=== PATIENT | female | born 2005 | race Two or more races ===

== ENCOUNTER 2025-01-29 10:53 | Emergency (ER) | payer MEDICAID, SELFPAY ==
--- NOTE | 2025-01-29 11:20 | XR_ITS ---
Examination: CT cervical spine without contrast 2-D sagittal reconstructions 2-D coronal reconstructions 3-D reconstructions. Exam date and time:January 29, 2025, 1114 hrs. Indications: Patient fell this morning with injury to the neck, neck pain CTDI:vol (mGy) 17.7 DLP: (mGycm) 355 Technique: Multiple 2 mm axial sections of the cervical spine have been obtained. The coronal and sagittal reconstructions have been obtained. 3-D reconstructions have been obtained. Low dose protocols were performed. One or more of the following dose reduction techniques were used; automated exposure control, adjustment of the mA and/or KV according to patient size, use of iterative reconstruction technique. Findings: Axial sections demonstrate intact base of the skull. C1 exhibit satisfactory relationship to the odontoid. No acute cervical vertebral body fracture seen. Alignment posterior spinous processes satisfactory. Impression: No acute cervical fracture.
--- NOTE | 2025-01-29 11:20 | XR_ITS ---
Examination: Left elbow 3 views Technique: Elbow AP, oblique, lateral 3 views Exam date and time: January 29, 2025 11:12 AM Indications: Injury to the elbow today, elbow pain. Findings: No fracture or dislocation. No foreign body Impression: No fracture or dislocation.
--- NOTE | 2025-01-29 11:20 | XR_ITS ---
Examination: CT maxillofacial, without intravenous contrast. 2-D sagittal reconstructions. 3-D reconstructions. Date and time of exam: January 31, 2025 11:55 AM Indications: Patient fell today with injury to the face, facial pain CTDI: vol (mGy):37.3. DLP: (mGycm):7. Technique: Multiple axial images of maxillofacial region, 3.0 mm slice thickness. 2-D sagittal and coronal reconstructions. 3-D reconstructions. Low dose protocols were performed. One or more of the following dose reduction techniques were used; automated exposure control, adjustment of the mA and/or KV according to patient size, use of iterative reconstruction technique. Findings: Frontal bone intact Orbital rims intact Small retention cysts in the upper maxillary antra No visible fracture No depression zygomatic arches. The optic globes appear intact Pterygoid plates maxilla and the mandible intact. Impression: No acute facial fracture
[2025-01-29 11:21] VITALS: BP 104/69; PULSE 68; RESP 19; TEMP 36.9; O2SAT 98; BMI 41.0
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
[2025-01-29] MEDS: ACETAMINOPHEN 325 MG TABLET 650 MG PO (11:37)
[2025-01-29 13:30] LABS: HCG Qualitative,Urine Negative
== END 2025-01-29 14:49 | disposition home or self-care (01) ==
PROVIDERS: Emergency Provider Family Medicine; PCP Family Medicine
DX: S01.81XA Laceration without foreign body of other part of head, initial encounter (principal); S50.312A Abrasion of left elbow, initial encounter; M54.2 Cervicalgia; S01.511A Laceration without foreign body of lip, initial encounter; V29.91XA Electric (assisted) bicycle rider (driver) (passenger) injured in unspecified traffic accident, initial encounter
CPT/HCPCS: 12011; 70486; 72125; 73080; 81025; 99283; A9270

== ENCOUNTER 2025-04-08 22:34 | Emergency (ER) | payer MEDICAID, SELFPAY ==
[2025-04-08 22:35] VITALS: BMI 36.8
[2025-04-08 22:41] VITALS: BP 146/86; PULSE 72; RESP 18; TEMP 37; O2SAT 99
--- NOTE | 2025-04-08 22:46 | PD.EDRME ---
Rapid Medical Screening Exam E Arrival date/time: 04/08/25 22:34 19F with history of marijuana use presents to ED with 1 week of intermittent gen ab pain. Today, some red stool in stool. Patient denies any red-colored food/drink intake. Chief Complaint: Abdominal Pain Vital signs: Vital Signs Temperature 98.6 F 04/08/25 22:41 Pulse Rate 72 04/08/25 22:41 Respiratory Rate 18 04/08/25 22:41 Blood Pressure 146/86 H 04/08/25 22:41 Pulse Oximetry (%) 99 04/08/25 22:41 Oxygen Delivery Method Room Air 04/08/25 22:41 Exam: No focal ab tenderness. Clinical Impression: GIB vs IBS vs IBD vs hemorrhoids vs food dye ingestion
[2025-04-08 23:16] LABS: Collection Type, Urine Clean Catch
[2025-04-08 23:16] LABS: Basophils # (Auto) 0.1 Thou/mm3 (0.0-0.2); Basophils % (Auto) 1 % (0-2.5); Eosinophils # (Auto) 0.2 Thou/mm3 (0.0-0.5); Eosinophils % (Auto) 3 % (0-10); Hematocrit 41.1 % (36.0-46.0); Hemoglobin 13.8 g/dL (12.0-16.0); Immature Granulocytes Auto 0.05 Thou/mm3 (0.00-0.00); Lymphocytes # (Auto) 3.3 Thou/mm3 (1.0-5.0); Lymphocytes % (Auto) 37 % (10-50); Mean Corpuscular HGB Conc 33.6 g/dl (31.0-37.0); Mean Corpuscular Hemoglobin 30.4 pg (25.0-35.0); Mean Corpuscular Volume 91 fL (80-100); Monocytes # (Auto) 0.8 Thou/mm3 (0.0-0.8); Monocytes % (Auto) 9 % (0-12); Neutrophils # (Auto) 4.5 Thou/mm3 (1.8-7.7); Neutrophils % (Auto) 50 % (37-80); Nucleated Red Blood Cell # 0.00 Thou/mm3 (0.00-0.00); Nucleated Red Blood Cell % 0 /100 WBC (0); Platelet Count 340 Thou/mm3 (140-440); RDW Standard Deviation 42.6 fL (36.4-46.3); Red Blood Count 4.54 Miln/mm3 (4.00-5.20); White Blood Count 8.9 Thou/mm3 (4.5-11.0)
[2025-04-08 23:35] LABS: HCG Qualitative,Urine Negative
[2025-04-08 23:36] LABS: Bacteria,Urine Rare; Bilirubin,Urine Negative (Negative); Blood,Urine Negative (Negative); Clarity,Urine Clear (Clear/Hazy); Color,Urine Lt-Yellow (Lt Yel-Yel); Culture Indicated,Urine Not Indicated; Glucose, Urine Negative (Negative); Ketones,Urine Negative (Negative); Leukocyte Esterase,Urine Negative (Negative); Nitrite,Urine Negative (Negative); PH,Urine 6.5 (5.0-7.0); Protein,Urine Negative (Neg - Trace); RBC,Urine 3 /hpf (0-3); Specific Gravity,Urine 1.022 (1.001-1.035); Squamous Epithelial Cell,Urine 6 /hpf (0-5); Urobilinogen,Urine Negative mg/dL (0.0-1.0); WBC,Urine 2 /hpf (0-5)
[2025-04-08 23:44] LABS: Amphetamine/Methamp Scrn,U Negative (Negative); Barbiturate Screen,Urine Negative (Negative); Benzodiazepines Screen,Urine Negative (Negative); Benzoylecgonine Screen, Ur Negative (Negative); Fentanyl Screen,Urine Negative (Negative); Opiate Screen,Urine Negative (Negative); THC Screen,Urine Positive (Negative)
[2025-04-08 23:47] LABS: Alanine Aminotransferase 47 U/L (10-49); Albumin, Serum 4.8 gm/dL (3.5-5.0); Albumin/Globulin Ratio 1.7 (1.2-2.2); Alkaline Phosphatase 107 U/L (46-116); Anion Gap 10 (7-16); Aspartate Amino Transferase 35 U/L (0-34); BUN/Creatinine Ratio 10 Ratio (12-20); Bilirubin,Total 0.3 mg/dL (0.3-1.2); Blood Urea Nitrogen 8 mg/dL (9-23); Calcium 9.5 mg/dL (8.3-10.6); Calcium (Corrected) 9.5 mg/dL (8.5-10.1); Carbon Dioxide 26.3 mMol/L (20.0-31.0); Chloride 106 mMol/L (98-107); Creatinine (Component) 0.8 mg/dL (0.6-1.3); Estimated Creatinine Clearance 128.3 mL/min (>60); Globulin 2.9 gm/dL (2.3-3.5); Glucose 106 mg/dL (74-106); Lipase 26 U/L (12-53); Osmolality,Calculated 281 (275-295); Potassium 4.3 mMol/L (3.4-5.1); Sodium 142 mMol/L (136-145); Total Protein 7.7 gm/dL (5.7-8.2); eGFR > 60 See Note
[2025-04-09 01:51] VITALS: BP 134/85; PULSE 61; RESP 16; TEMP 36.8; O2SAT 98
--- NOTE | 2025-04-09 02:06 | EDNOTE_ITS ---
ED Abdominal Pain RME/HPI General Chief Complaint: Abdominal Pain Stated complaint: RED STOOLS, ABD PAIN Time seen by provider: 04/08/25 22:55 Arrival date/time: 04/08/25 22:34 RME / HPI RME / HPI narrative: 04/08/25 22:34 19F with history of marijuana use presents to ED with 1 week of intermittent gen ab pain. Today, some red stool in stool. Patient denies any red-colored food/drink intake. DR. FLETCHER MAIN ED EVALUATION: Patient with generalized abdominal pain and associated diarrhea x 1 week. Now with bloody stool today. Notes chills without fever. No rest ingestion, foreign travel, or ABX therapy prior to onset of symptoms. PMH: PSH: Non-contributory Allergies: NKDA Social: Occasional Marijuana, No alcohol or illicit drug abuse Exam: No focal ab tenderness. Impression: GIB vs IBS vs IBD vs hemorrhoids vs food dye ingestion Related Data Previous Rx's ?Medication ?Instructions ?Recorded ondansetron 4 mg disintegrating 4 mg PO Q12H PRN nause a and 03/04/22 tablet vomiting #10 tabs ibuprofen 600 mg tablet 600 mg PO Q6H #30 tabs 03/08 loperamide 2 mg capsule (Imodium 2 mg PO Q6H PRN loose stool #14 03/08/24 A-D) caps ondansetron 4 mg disintegrating 4 mg PO Q8H PRN nausea and 03/08/24 tablet vomiting #10 tabs cefuroxime axetil 500 mg tablet 500 mg PO BID #14 tabs 03/11/24 metoclopramide HCl 10 mg tablet 10 mg PO Q6H PRN nause a and 03/11/24 (Reglan) vomiting #10 tabs ciprofloxacin HCl 500 mg tablet 500 mg PO Q12H #10 tab s 04/09/25 (Cipro) hydrocodone 5 mg-acetaminophen 325 1 tab PO Q8H PRN pa in #14 tabs 04/09/25 mg tablet Allergies Allergy/AdvReac Type Severity Reaction Status Date / Time No Known Allergies Allergy Verified 04/08/25 22:34 Review of Systems Review of Systems Systems Reviewed: All systems reviewed, normal except as documented Past Medical History Social History SUBSTANCE USE: marijuana ED Exam Narrative Physical exam: GEN. APPEARANCE: The patient is alert awake oriented X-3 under no distress, lying down comfortably, does not look ill/toxic. Patient has good eye contact. Patient is cooperative. VITALS: All vitals were reviewed and the pulse ox is 98%, which is normal according to my interpretation HEENT: Normocephalic, atraumatic and nontender. Pupils are equal and reactive. Oral mucosa is moist. NECK: Supple, nontender, no meningismus, no JVD. There is no thyromegaly and no lymphadenopathy. CHEST: Nontender on palpation no deformity and no crepitus. CARDIOVASCULAR: Heart regular rhythm, no murmur or gallop rub or extra beats. LUNGS: Clear to auscultation bilaterally with symmetrical chest rise. No laboring tachypnea or wheezing. No intercostal subcostal retraction. No rales and no rhonchi. ABDOMEN: Soft, flat, mildly tender LUQ/flank, no peritoneal findings noted., no guarding or rebound tenderness. There are no abnormal masses palpated. No pulsatile masses or bruits. Active and normal bowel sounds. EXTREMITIES: Normal inspection and palpation. No edema. No cyanosis. Patient is able to move all 4 extremities well SKIN: Warm and dry, no rashes noted. MUSCULOSKELETAL: No lumbar or midline bony tenderness. There is no CVA tenderness. No paraspinal muscle spasm or tenderness. NEURO: Cranial nerves II through XII grossly intact. There are no focal neurologic deficits noted. GCS is 15 PSYCHIATRIC: Patient is in normal mood and affect, cooperative. LYMPHATICS: No major lymphadenopathy noted. Course Quality Measures none Orders Category Date Time Status CBC Stat Lab 04/08/25 22:59 Completed CMP [Comprehensive Metabolic Panel] Stat Lab 04/08/25 22:59 Completed Drug Screen,Urine Stat Lab 04/08/25 23:09 Completed HCG Qualitative,Urine Stat Lab 04/08/25 23:09 Completed Lipase Stat Lab 04/08/25 22:59 Completed Urinalysis, C/S if Indicated Stat Lab 04/08/25 23:09 Completed Ketorolac Inj [Toradol Inj] Med 04/09/25 02:21 Discontinued 30 mg IM X1 ONE Vital Signs Vital signs: Vital Signs Temperature 98.6 F 04/08/25 22:41 Pulse Rate 72 04/08/25 22:41 Respiratory Rate 18 04/08/25 22:41 Blood Pressure 146/86 H 04/08/25 22:41 Pulse Oximetry (%) 99 04/08/25 22:41 Oxygen Delivery Method Room Air 04/08/25 22:41 PROCEDURES: Stool Hemoccult Procedural Steps Taken: stool placed in appropriate test area, developer placed on stool and control areas and controls appropriately positive and negative Hemoccult result: positive Additional Comments: Fine streaks of blood on digital exam Abdominal Pain MDM MDM Narrative MDM Narrative:: Scribe Attestation: IDana, am scribing for and in the presence of Dr. Connor. Provider Notation: Although this document has been carefully reviewed, there may still be some phonetic and other typographical errors. These errors are purely grammatical due to imperfections in the software program and should not be construed in any way to compromise the substance of the patient's medical care during this visit. Patient with generalized abdominal pain and associated diarrhea x 1 week. Now with bloody stool today. Please see PE findings. Laboratory markers, including CBC and serum chemistries, demonstrate normal WBC, no anemia or thrombocytopenia. No left shift or bandemia. Serum chemistries were essentially unremarkable. UA within normal limits. Toxicology screen was positive for marijuana. test was negative. Given duration of diarrhea which has become bloody, will consider imperic ABX and antispasmotic. Patient will be instructed to maintain clear liquid diet for 24 hours. F/U with PMD in 5-7 days. Patient data External records reviewed:: [facility] previous records (Reviewed prior ED records from 01/29/25. Patient was seen for Complex laceration of face.) Clinical information provided by:: patient Social determinants that could affect healthcare access:: substance use (Marijuana) Patient has the following chronic illnesses:: None reeported How is presenting disease/condition affected by chronic disease/condition?: no chronic disease Evaluation data The following diagnostics were reviewed and interpreted by me:: lab results Lab and/or radiology exams considered but not ordered:: None Interpretation Summary: See MDM above Medications / Prescriptions Medications or Prescriptions considered but not ordered:: None Medication administrations:: Medication Administration History Discontinued Medications Ketorolac Tromethamine (Ketorolac Inj 30 Mg/Ml Vial) 30 mg IM X1 ONE Stop: 04/09/25 02:22 Last Admin: 04/09/25 02:35 Dose: Not Given Documented By: CYNDI Non-Admin Reason: Patient Refused See above if any Consultations Consultation(s) initiated? (list below): No Diagnosis Differential diagnosis abdominal pain: abdominal pain, diverticulitis, gastroenteritis, small bowel obstruction and other (Hemorrhoids, Polyps) Most likely diagnosis given after review of the tests above:: Acute Diarrhea/Diarrheal Illness Admission Indicated Admission indicated?: not indicated Explain why admission is indicated or not indicated:: Patient does not meet admission criteria Admission Request Was there a request for admission?: No Disposition Plan Disposition Plan: Discharge Discharge Attestation Discharge Attestation: The patient and all family members were given an opportunity to ask questions and understood the discharge instructions. Discharge instructions specifically effects, indications for sooner follow up or return to the emergency department, and the expected course of current diagnosis. Patient condition: Stable Discharge Plan Plan Patient Disposition: HOME (Self Care) Discharge Disposition comment: Stable Prescriptions/Referrals Prescriptions/Med Rec: New ciprofloxacin HCl [Cipro] 500 mg tablet 500 mg PO Q12H Qty: 10 0RF hydrocodone-acetaminophen 5-325 mg tablet 1 tab PO Q8H MDD 3 tab PRN (Reason: pain) Qty: 14 0RF No Action ondansetron 4 mg tablet,disintegrating 4 mg PO Q12H PRN (Reason: nausea and vomiting) Qty: 10 0RF loperamide [Imodium A-D] 2 mg capsule 2 mg PO Q6H PRN (Reason: loose stool) Qty: 14 0RF ibuprofen 600 mg tablet 600 mg PO Q6H Qty: 30 0RF ondansetron 4 mg tablet,disintegrating 4 mg PO Q8H PRN (Reason: nausea and vomiting) Qty: 10 0RF metoclopramide HCl [Reglan] 10 mg tablet 10 mg PO Q6H PRN (Reason: nausea and vomiting) Qty: 10 0RF cefuroxime axetil 500 mg tablet 500 mg PO BID Qty: 14 0RF Referrals: Pankaj Cramer MD [Primary Care Provider, Family Practice] - In 1 week Problem List Clinical Impression: Acute diarrhea, Bloody diarrhea Impression comment: Bloody diarrhea Patient/Caregiver Discharge Instructions Discharge Activity: activity as tolerated Diet Instructions: Force fluids. Education Materials: Self-Care for Vomiting and Diarrhea Additional Instructions: Clear liquid diet x 24 hours and advance as tolerated. Medication as directed. Follow-up primary care doctor as you may require lower endoscopy should symptoms persist. Return for fevers vomiting or worsening illness. Print Language: Spanish Stand Alone Forms: [facility] Award Info., Patient Portal Info Letter
== END 2025-04-09 02:46 | disposition home or self-care (01) ==
PROVIDERS: Physician Assistant; Emergency Provider Emergency Medicine; PCP Family Medicine
DX: K92.1 Melena (principal)
CPT/HCPCS: 36415; 80053; 80307; 81001; 81025; 83690; 85025; 99282

== ENCOUNTER 2025-04-22 18:27 | Emergency (ER) | payer MEDICAID, SELFPAY ==
[2025-04-22 18:27] VITALS: BMI 37.8
--- NOTE | 2025-04-22 18:35 | PC.NURSE ---
SPOKE TO [facility] POISON CONTROL; PER [facility], WE RECOMMEND PRECAUTION TO OBS PT FOR 6 HOURS AND MAKE SURE PT DOES NOT NEED A SHOT OF NARCAN. DRAW ACETAMINOPHEN LEVEL, SALICYLATE LEVEL, CMP, BLOOD ALCOHOL, WELL COLLECT URINE FOR DRUG SCREEN.
[2025-04-22 18:43] VITALS: BP 142/91; PULSE 99; RESP 17; TEMP 36.8; O2SAT 99
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
[2025-04-22 19:23] LABS: Basophils # (Auto) 0.1 Thou/mm3 (0.0-0.2); Basophils % (Auto) 1 % (0-2.5); Eosinophils # (Auto) 0.1 Thou/mm3 (0.0-0.5); Eosinophils % (Auto) 1 % (0-10); Hematocrit 40.3 % (36.0-46.0); Hemoglobin 14.0 g/dL (12.0-16.0); Immature Granulocytes Auto 0.07 Thou/mm3 (0.00-0.00); Lymphocytes # (Auto) 2.4 Thou/mm3 (1.0-5.0); Lymphocytes % (Auto) 23 % (10-50); Mean Corpuscular HGB Conc 34.7 g/dl (31.0-37.0); Mean Corpuscular Hemoglobin 31.0 pg (25.0-35.0); Mean Corpuscular Volume 89 fL (80-100); Monocytes # (Auto) 0.7 Thou/mm3 (0.0-0.8); Monocytes % (Auto) 7 % (0-12); Neutrophils # (Auto) 7.4 Thou/mm3 (1.8-7.7); Neutrophils % (Auto) 68 % (37-80); Nucleated Red Blood Cell # 0.00 Thou/mm3 (0.00-0.00); Nucleated Red Blood Cell % 0 /100 WBC (0); Platelet Count 320 Thou/mm3 (140-440); RDW Standard Deviation 40.1 fL (36.4-46.3); Red Blood Count 4.52 Miln/mm3 (4.00-5.20); White Blood Count 10.7 Thou/mm3 (4.5-11.0)
[2025-04-22 19:49] LABS: Acetaminophen < 2.0 mcg/mL (10.0-20.0); Alanine Aminotransferase 47 U/L (10-49); Albumin, Serum 5.0 gm/dL (3.5-5.0); Albumin/Globulin Ratio 1.6 (1.2-2.2); Alkaline Phosphatase 120 U/L (46-116); Anion Gap 10 (7-16); Aspartate Amino Transferase 26 U/L (0-34); BUN/Creatinine Ratio 7 Ratio (12-20); Bilirubin,Total 0.4 mg/dL (0.3-1.2); Blood Urea Nitrogen < 5 mg/dL (9-23); Calcium 9.9 mg/dL (8.3-10.6); Calcium (Corrected) 9.9 mg/dL (8.5-10.1); Carbon Dioxide 23.8 mMol/L (20.0-31.0); Chloride 106 mMol/L (98-107); Creatinine (Component) 0.7 mg/dL (0.6-1.3); Estimated Creatinine Clearance 148.4 mL/min (>60); Globulin 3.2 gm/dL (2.3-3.5); Glucose 96 mg/dL (74-106); Osmolality,Calculated 276 (275-295); Potassium 4.4 mMol/L (3.4-5.1); Salicylate < 3.0 mg/dL; Sodium 140 mMol/L (136-145); Total Protein 8.2 gm/dL (5.7-8.2); eGFR > 60 See Note
[2025-04-22 20:26] LABS: HCG Qualitative,Urine Negative
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
[2025-04-22 20:48] LABS: Alcohol, Blood Medical < 3.0 mg/dL (0-10.0)
[2025-04-22 22:02] LABS: Amphetamine/Methamp Scrn,U Negative (Negative); Barbiturate Screen,Urine Negative (Negative); Benzodiazepines Screen,Urine Negative (Negative); Benzoylecgonine Screen, Ur Negative (Negative); Fentanyl Screen,Urine Positive (Negative); Opiate Screen,Urine Negative (Negative); THC Screen,Urine Positive (Negative)
--- NOTE | 2025-04-22 22:14 | PC.NURSE ---
pt requesting something to help her sleep, provider made aware.
[2025-04-22] MEDS: MELATONIN 3 MG TABLET PO (23:19)
[2025-04-23 06:11] VITALS: BP 93/60; PULSE 62; RESP 17; TEMP 36.7; O2SAT 98
--- NOTE | 2025-04-23 06:20 | EDNOTE_ITS ---
Emergency Room Addendum Addendum Narrative: I took over the care from previous shift physician at _0600_ on _04/23/25_. See previous notes for complete H & P and ED course. I reviewed all diagnostic test results. Blood tests and urine tests unremarkable. Diagnoses include: Suicide attempt Left forearm abrasion Treatment here from me included: Tdap Wound care with topical bacitracin Patient is medically cleared for psychiatric care. We discussed the case with [facility]. About the presentation and exam and diagnostics and treatments here. And need of further care there. Agreed to accept the patient. Patient transferred out in stable condition. During my watch, the patient remained stable. Jose Maria Haley MD
[2025-04-23] MEDS: DIPHTH,PERTUSS(ACELL),TET VAC 0.5 ML SYR- ADULT IMi (07:17)
[2025-04-23] MEDS: BACITRACIN OINT 1 GM PACKET TOP (07:23)
[2025-04-23 08:12] LABS: Magnesium 2.0 mg/dL (1.6-2.6); Thyroid Stimulating Hormone 3.00 uIU/mL (0.55-4.78)
[2025-04-23 10:08] VITALS: BP 131/83; PULSE 66; RESP 17; TEMP 36.3; O2SAT 98
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
[2025-04-23 12:55] VITALS: BP 137/81; PULSE 77; RESP 18; TEMP 36.8; O2SAT 98
--- NOTE | 2025-04-23 13:34 | PC.NURSE ---
[facility] to get info will give acceptance to professor of social work
--- NOTE | 2025-04-23 15:20 | PC.CC ---
Patient was accepted by [facility], accepting Dr. Biswas, arrival time 1530. Nurse to Nurse report to [phone], PADILLA Miranda was updated. The earliest ambulance lease picker was 1515, but the ambulance arrived at 1445. SW confirmed with [facility] employee [place] that it was ok for the patient to go. Transportation was set up using [employer]. SW completed transferred packet and handed to ambulace employee. SW left a copy of the 5150 hold and the physician transfer certification forms on the physical chart. MD Haley, LIZBETH San, and PADILLA Miranda were updated.
--- NOTE | 2025-04-23 15:24 | PC.NURSE ---
CALLED [facility] NURSE TO NURSE
== END 2025-04-23 15:04 ==
PROVIDERS: Physician Assistant; Emergency Provider Emergency Medicine; PCP Family Medicine
DX: Z04.6 Encounter for general psychiatric examination, requested by authority (principal); S50.812A Abrasion of left forearm, initial encounter; F32.A Depression, unspecified; X78.9XXA Intentional self-harm by unspecified sharp object, initial encounter; Y90.0 Blood alcohol level of less than 20 mg/100 ml; Z23 Encounter for immunization; Z75.1 Person awaiting admission to adequate facility elsewhere
CPT/HCPCS: 36415; 80053; 80307; 80320; 80329; 81025; 83735; 84443; 85025; 90471; 90715; 96127; 99284; A9270; G0480

== ENCOUNTER 2025-05-06 17:54 | Emergency (ER) | payer MEDICAID, SELFPAY ==
[2025-05-06 19:02] VITALS: BP 127/80; PULSE 60; RESP 18; TEMP 36.7; O2SAT 98; BMI 39.4
--- NOTE | 2025-05-06 19:44 | PD.EDLOWEX ---
Lower Extremity Injury RME/HPI General Chief Complaint: General Adult/Misc Complain Stated Complaint: R LEG PAIN FOR A COUPLE OF MONTHS Time Seen by Provider: 05/06/25 19:27 Arrival date/time: 05/06/25 17:54 19F with history of psych presents to ED needing medical clearance for some type of psych residential program. She needs clearance for intermittent R knee pain for several months. Limitations: no limitations Related Data Previous Rx's ?Medication ?Instructions ?Recorded ondansetron 4 mg disintegrating 4 mg PO Q12H PRN nausea and 03/04/22 tablet vomiting #10 tabs ibuprofen 600 mg tablet 600 mg PO Q6H #30 tabs 03/08/24 loperamide 2 mg capsule (Imodium 2 mg PO Q6H PRN loose stool #14 03/08/24 A-D) caps ondansetron 4 mg disintegrating 4 mg PO Q8H PRN nausea and 03/08/24 tablet vomiting #10 tabs cefuroxime axetil 500 mg tablet 500 mg PO BID #14 tabs 03/11/24 metoclopramide HCl 10 mg tablet 10 mg PO Q6H PRN nausea and 03/11/24 (Reglan) vomiting #10 tabs ciprofloxacin HCl 500 mg tablet 500 mg PO Q12H #10 tabs 04/09/25 (Cipro) hydrocodone 5 mg-acetaminophen 325 1 tab PO Q8H PRN pain #14 tabs 04/09/25 mg tablet Allergies Allergy/AdvReac Type Severity Reaction Status Date / Time No Known Allergies Allergy Verified 05/06/25 17:59 Review of Systems Review of Systems Systems Reviewed: All systems reviewed, normal except as documented Musculoskeletal Musculoskeletal: Reports as per HPI and Reports arthralgias Past Medical History Past Medical History CARDIAC: Negative Congestive Heart Failure RESPIRATORY: Negative Chronic Obstructive Pulmonary Disease (COPD) GENITOURINARY: Negative Renal Disease ENDOCRINE: Negative Diabetes Mellitus Type 1 or Diabetes Mellitus Type 2 PSYCHO/SOCIAL: Positive Depression and Anxiety Social History SMOKING STATUS: Never smoker SUBSTANCE USE: marijuana ED Exam General Limitations: Present no limitations General appearance: Present alert and in no apparent distress Head Head exam: Present atraumatic Neck Neck exam: Present normal inspection, full ROM and trachea midline Chest Chest inspection: Present normal inspection and symmetric chest wall rise Extremities Exam Extremities exam: Present normal inspection and full ROM Neurological Exam Neurological exam: Present alert and oriented X3 Psychiatric Psychiatric exam: Present normal affect and normal mood Skin Skin exam: Present warm, dry, intact and normal color Course Quality Measures none Vital Signs Vital signs: Vital Signs Temperature 98.1 F 05/06/25 19:02 Pulse Rate 60 05/06/25 19:02 Respiratory Rate 18 05/06/25 19:02 Blood Pressure 127/80 05/06/25 19:02 Pulse Oximetry (%) 98 05/06/25 19:02 Oxygen Delivery Method Room Air 05/06/25 19:02 O2 at 98% on RA and WNLs Extremity Injury, Lower MDM Narrative MDM Narrative:: 19F with history of psych presents to ED needing medical clearance for some type of psych residential program. She needs clearance for intermittent R knee pain for several months. Physical exam reveals normal R knee ROM. Gait normal. No obvious swelling or redness. Patient is afebrile, calm, and alert. Medically cleared. Patient data External records reviewed:: [facility] previous records Clinical information provided by:: patient Social determinants that could affect healthcare access:: mental health Patient has the following chronic illnesses:: psych How is presenting disease/condition affected by chronic disease/condition?: exacerbated by Evaluation data The following diagnostics were reviewed and interpreted by me:: other (specify) (none) Lab and/or radiology exams considered but not ordered:: not ordered Interpretation Summary: n/a Medications / Prescriptions Medications or Prescriptions considered but not ordered:: not ordered Medication administrations:: n/a Consultations Consultation(s) initiated? (list below): No Diagnosis Extremity Injury, Lower Differential Diagnosis: ankle sprain and strain, acute internal derangement of knee, fracture of femur, fracture of hip, puncture wound of foot, fracture of toe and ankle fracture Most likely diagnosis given after review of the tests above:: internal derangement of knee Admission Indicated Admission indicated?: not indicated Admission Request Was there a request for admission?: No Disposition Plan Disposition Plan: Discharge Discharge Attestation Discharge Attestation: The patient and all family members were given an opportunity to ask questions and understood the discharge instructions. Discharge instructions specifically effects, indications for sooner follow up or return to the emergency department, and the expected course of current diagnosis. Patient condition: Stable Discharge Plan Plan Patient Disposition: HOME (Self Care) Discharge Disposition comment: Stable Prescriptions/Referrals Prescriptions/Med Rec: No Action ondansetron 4 mg tablet,disintegrating 4 mg PO Q12H PRN (Reason: nausea and vomiting) Qty: 10 0RF loperamide [Imodium A-D] 2 mg capsule 2 mg PO Q6H PRN (Reason: loose stool) Qty: 14 0RF ibuprofen 600 mg tablet 600 mg PO Q6H Qty: 30 0RF ondansetron 4 mg tablet,disintegrating 4 mg PO Q8H PRN (Reason: nausea and vomiting) Qty: 10 0RF metoclopramide HCl [Reglan] 10 mg tablet 10 mg PO Q6H PRN (Reason: nausea and vomiting) Qty: 10 0RF cefuroxime axetil 500 mg tablet 500 mg PO BID Qty: 14 0RF ciprofloxacin HCl [Cipro] 500 mg tablet 500 mg PO Q12H Qty: 10 0RF hydrocodone-acetaminophen 5-325 mg tablet 1 tab PO Q8H MDD 3 tab PRN (Reason: pain) Qty: 14 0RF Problem List Clinical Impression: Derangement of knee Patient/Caregiver Discharge Instructions Education Materials: How Your Knee Works Additional Instructions: Please follow-up with PCP within 24-48 hours and return immediately if symptoms worsen. Patient is medically cleared. Print Language: Belarusian Stand Alone Forms: Patient Portal Info Letter PAUL/CASE COORDINATOR Supervising Physician PAUL/BIN Supervising Physician: Dr. Killian
== END 2025-05-06 19:38 | disposition home or self-care (01) ==
LOC: SERX 19:39
PROVIDERS: Emergency Provider Emergency Medicine
DX: M23.91 Unspecified internal derangement of right knee (principal)
CPT/HCPCS: 99281